=== PATIENT | female | born 1980 | race Caucasian/White ===

== ENCOUNTER 2016-11-30 16:20 | Emergency (ER) | payer OTHER ==
[~2016-11-30] VITALS: Ht 167.6 cm; Wt 52.2 kg
--- NOTE | 2016-11-30 17:34 | ED Integumentary General ---
General Chief Complaint: Skin/Wound Problems Stated Complaint: SPIDER BITES Nursing Triage Note: c/o abscess to right thigh and to vaginal area. Source: patient Exam Limitations: no limitations History of Present Illness Time seen by provider: 17:34 Initial Comments 36-year-old female patient presents to the emergency department complaints of possible spider bites and abscess to the right thigh and left labia. Patient also complaints of generalized rash and pruritus beginning 2 days ago. States her boyfriend is also being seen in the emergency department for different complaints. Timing/Duration: other (2 days) Location: extremities (left thigh), genitalia (left labia), generalized ( generalized rash) Possible Cause: other (possible spider bite) Modifying Factors: worse with scratching Allergies and Home Medications Allergies Coded Allergies: No Known Drug Allergies (Unverified , 11/30/16) Home Medications Famotidine 20 Mg Tablet, 20 MG PO BID, #14 Ref 0 Prescribed by: AUBREY BRADSHAW on 11/30/161839 Naproxen 500 Mg Tablet, 500 MG PO BID PRN for pain, #20 Ref 0 Prescribed by: AUBREY BRADSHAW on 11/30/161839 Prednisone 20 Mg Tab, 20 MG PO BID, #6 Ref 0 Prescribed by: AUBREY BRADSHAW on 11/30/161839 Sulfamethoxazole/Trimethoprim 1 Each Tablet, 1 EACH PO BID, #20 Ref 0 Prescribed by: AUBREY BRADSHAW on 11/30/161839 Constitutional: No chills, No fever, No malaise EENTM: no symptoms reported Respiratory: No cough, No short of breath Cardiovascular: no symptoms reported Gastrointestinal: No abdominal pain, No diarrhea, No nausea, No vomiting Genitourinary: no symptoms reported Musculoskeletal: no symptoms reported Skin: see HPI Psychiatric/Neurological: No Symptoms Reported All Other Systems Reviewed Negative Unless Noted: Yes (Negative excepted noted.) Past Tukzmii-Bwvpph-Voifin Hx Patient Social History Alcohol Use: Occasionally Uses Smoking Status: Current Everyday Smoker Recent Foreign Travel: No Contact w/Someone Who Travel: No Recent Infectious Disease Expo: No Surgeries HX Surgeries: Yes Surgeries: Gallbladder, Oophorectomy Respiratory Hx Respiratory Disorders: No Cardiovascular Hx Cardiac Disorders: No Neurological Hx Neurological Disorders: No Gastrointestinal Hx Gastrointestinal Disorders: No Musculoskeletal Hx Musculoskeletal Disorders: No Reviewed Nursing Assessment Reviewed/Agree w Nursing PMH: Yes Family Medical History Significant Family History: No Pertinent Family Hx Physical Exam Vital Signs Vital Sign - Last 12Hours 11/30/16 11/30/16 16:59 19:03 Temp 97.2 Pulse 70 Resp 0 B/P (MAP) 118/70 Pulse Ox 98 Capillary Refill : Less Than 3 Seconds General Appearance: WD/WN, no apparent distress HEENT: PERRL/EOMI, pharynx normal Neck: supple, normal inspection Cardiovascular: regular rate, rhythm, no edema, no murmur Respiratory: lungs clear, normal breath sounds, no respiratory distress Gastrointestinal: non tender, soft, No distended Neurologic/Psychiatric: alert, normal mood/affect, oriented x 3 Skin: rash (generalized macular papular rash), other (8 x 8 cm area of erythema , warmth, tenderness with central necrosis. Central induration. 0.5 cm x0.5 cm area of induration and tenderness noted on the left labia majora.) Skin Problem Character: other (8 x 8 cm area of erythema, warmth, tenderness with central necrosis. Central induration. generalized macular papular rash. 0.5 cm x0.5 cm area of induration and tenderness noted on the left labia majora. ) Progress/Results/Core Measures Results/Orders Micro Results Microbiology 11/30/16 Gram Stain - Final, Resulted 11/30/16 Wound Culture - Preliminary, Resulted Staphylococcus Aureus My Orders Orders - AUBREY BRADSHAW Famotidine Tablet (Pepcid Tablet) (11/30/16 18:03) Ketorolac Injection (Toradol Injection) (11/30/16 18:03) Diphenhydramine Tablet (Benadryl Tablet) (11/30/16 18:15) Prednisone Tablet (Deltasone Tablet) (11/30/16 18:15) Dipht,Pertuss(Acell),Tet Adult (Boostrix (11/30/16 18:10) Wound Culture (11/30/16 19:03) Im/Sub-Q Injection Non-Ab Ed (11/30/16 ) Vaccine Administration Single (11/30/16 ) Vital Signs/I&O Vital Sign - Last 12Hours 11/30/16 11/30/16 11/30/16 11/30/16 16:59 18:32 18:34 19:03 Temp 97.2 97.2 97.2 Pulse 70 0 Resp 0 B/P (MAP) 118/70 Pulse Ox 98 0 Blood Pressure Mean: 86 Departure Communication Progress Notes Patient seen and evaluated. Plan for dsch to home. Impression Impression: Primary Impression: Abscess of right thigh Additional Impressions: Cellulitis of labia majora Urticaria Disposition: HOME, SELF-CARE Condition: Improved Departure-Patient Inst. Decision time for Depature: 18:37 Referrals: NO,LOCAL PHYSICIAN (PCP) Primary Care Physician Patient Instructions: Cellulitis (Skin Infection), Adult (DC) Add. Discharge Instructions: All discharge instructions reviewed with patient and/or family. Voiced understanding. Medications as instructed. Tylenol Extra Strength over-the- counter as directed for pain. Shower with antibacterial soap. Follow-up with your family practitioner of choice in the next 1-2 days for recheck, call for appointment time tomorrow morning. Return to the emergency department for worsened pain, fever, vomiting, drainage, difficulty swallowing, difficulty breathing, or any other concerns. Scripts Naproxen (Naprosyn) 500 Mg Tablet 500 MG PO BID Y for pain, #20 TAB 0 Refills Prov: AUBREY BRADSHAW 11/30/16 Prednisone (Prednisone) 20 Mg Tab 20 MG PO BID, #6 TAB 0 Refills Prov: AUBREY BRADSHAW 11/30/16 Famotidine (Pepcid) 20 Mg Tablet 20 MG PO BID, #14 TAB 0 Refills Prov: AUBREY BRADSHAW 11/30/16 Sulfamethoxazole/Trimethoprim (Bactrim Ds Tablet) 1 Each Tablet 1 EACH PO BID, #20 TAB 0 Refills Prov: AUBREY BRADSHAW 11/30/16 Work/School Note: Local Medical Staff Listing AUBREY BRADSHAW November 30, 2016 17:34
[2016-11-30] MEDS ORDERED: KETOROLAC 60 MG/2 ML VIAL IM STA (18:03)
[2016-11-30] MEDS ORDERED: FAMOTIDINE 20 MG (PEPCID) TABLET PO STA (18:03)
[2016-11-30] MEDS ORDERED: TETANUS,DIPTH,PERTUSS P/F (BOOSTRIX) 0.5 ML VIAL IM STA (18:10)
[2016-11-30] MEDS ORDERED: predniSONE 20 MG TAB PO ONE (18:15)
[2016-11-30] MEDS ORDERED: diphenhydrAMINE 25 MG TAB (BENADRYL) PO ONE (18:15)
[2016-11-30] MEDS ORDERED: NAPR500T PO (18:40)
[2016-11-30] MEDS ORDERED: SULF1TAB35 PO (18:40)
[2016-11-30] MEDS ORDERED: FAMO-119 PO (18:40)
[2016-11-30] MEDS ORDERED: PRD20T PO (18:40)
[2016-11-30 19:03] VITALS: BP 0/0
[2016-12-01] MEDS ORDERED: PRD20T PO (20:06)
[2016-12-01] MEDS ORDERED: CLIN300C11 PO (20:06)
== END 2016-11-30 19:00 | disposition home or self-care (01) ==
LOC: EDUNIT# 16:20 → ER 16:24
DX: L02.415 Cutaneous abscess of right lower limb (principal); N76.2 Acute vulvitis; Z23 Encounter for immunization; F17.210 Nicotine dependence, cigarettes, uncomplicated
CPT/HCPCS: 87070; 87205; 90471; 90715; 96372; 99282

== ENCOUNTER 2016-12-01 16:30 | Emergency (ER) | payer OTHER ==
[~2016-12-01] VITALS: Ht 160 cm; Wt 49.9 kg
[~2016-12-01 16:30] MED LIST: FAMO-119 PO; NAPR500T PO; PRD20T PO; SULF1TAB35 PO
[2016-12-01] MEDS ORDERED: methylPREDNISolone 125 MG (Solu-MEDROL) VIAL IV STA (16:34)
[2016-12-01] MEDS ORDERED: FAMOTIDINE 20MG/2ML IV (PEPCID) IV STA (16:34)
[2016-12-01] MEDS ORDERED: diphenhydrAMINE 50 MG/ML INJ (BENADRYL) IV STA (16:34)
[2016-12-01] MEDS ORDERED: NS IV 1000 ML 1,000 ML IV ONE ×2 (16:39→18:28)
--- NOTE | 2016-12-01 17:14 | ED General ---
General Chief Complaint: Allergic Reaction Stated Complaint: ALLERGIC REACTION;SWOLLEN THROAT,ITCHING Nursing Triage Note: Pt c/o generalized itching. Concerned about possible allergic reaction to Bactrim. Seen in ER yesterday for abscess to right leg. Nursing Sepsis Screen: No Definite Risk Source of Information: Patient, Other (significant other ) Exam Limitations: No Limitations History of Present Illness Time Seen by Provider: 16:30 Allergies and Home Medications Allergies Coded Allergies: No Known Drug Allergies (Unverified , 11/30/16) Home Medications Famotidine 20 Mg Tablet, 20 MG PO BID, #14 Ref 0 Prescribed by: AUBREY BRADSHAW on 11/30/161839 Naproxen 500 Mg Tablet, 500 MG PO BID PRN for pain, #20 Ref 0 Prescribed by: AUBREY BRADSHAW on 11/30/161839 Prednisone 20 Mg Tab, 20 MG PO BID, #6 Ref 0 Prescribed by: AUBREY BRADSHAW on 11/30/161839 Sulfamethoxazole/Trimethoprim 1 Each Tablet, 1 EACH PO BID, #20 Ref 0 Prescribed by: AUBREY BRADSHAW on 11/30/161839 Past Cvjmcnc-Bskccb-Kruqsc Hx Patient Social History Recent Foreign Travel: No Contact w/Someone Who Travel: No Recent Infectious Disease Expo: No Surgeries HX Surgeries: Yes Surgeries: Gallbladder, Oophorectomy Respiratory Hx Respiratory Disorders: No Cardiovascular Hx Cardiac Disorders: No Neurological Hx Neurological Disorders: No Gastrointestinal Hx Gastrointestinal Disorders: No Musculoskeletal Hx Musculoskeletal Disorders: No Family Medical History Significant Family History: No Pertinent Family Hx Physical Exam Vital Signs Vital Sign - Last 12Hours 12/01/16 16:30 Temp 97.5 Pulse 70 Resp 18 B/P (MAP) 122/70 Pulse Ox 98 O2 Delivery Room Air Capillary Refill : Less Than 3 Seconds Focused Exam Lactic Acid Level Laboratory Tests Test 12/01/16 18:50 Lactic Acid Level 0.66 MMOL/L (0.50-2.00) Progress/Results/Core Measures Results/Orders Lab Results Laboratory Tests Test 12/01/16 17:30 12/01/16 18:45 12/01/16 18:50 Range/Units White Blood Count 15.9 H 4.3-11.0 10^3/uL Red Blood Count 3.79 L 4.35-5.85 10^6/uL Hemoglobin 12.2 11.5-16.0 G/DL Hematocrit 35 35-52 % Mean Corpuscular Volume 93 80-99 FL Mean Corpuscular Hemoglobin 32 25-34 PG Mean Corpuscular Hemoglobin Concent 35 32-36 G/DL Red Cell Distribution Width 13.4 10.0-14.5 % Platelet Count 172 130-400 10^3/uL Mean Platelet Volume 11.5 H 7.4-10.4 FL Neutrophils (%) (Auto) 87 H 42-75 % Lymphocytes (%) (Auto) 10 L 12-44 % Monocytes (%) (Auto) 2 0-12 % Eosinophils (%) (Auto) 0 0-10 % Basophils (%) (Auto) 0 0-10 % Neutrophils # (Auto) 13.9 H 1.8-7.8 X 10^3 Lymphocytes # (Auto) 1.6 1.0-4.0 X 10^3 Monocytes # (Auto) 0.4 0.0-1.0 X 10^3 Eosinophils # (Auto) 0.0 0.0-0.3 10^3/uL Basophils # (Auto) 0.0 0.0-0.1 10^3/uL Neutrophils % (Manual) 86 % Lymphocytes % (Manual) 13 % Monocytes % (Manual) 0 % Eosinophils % (Manual) 0 % Basophils % (Manual) 0 % Band Neutrophils 1 % Blood Morphology Comment NORMAL Sodium Level 138 135-145 MMOL/L Potassium Level 4.8 3.6-5.0 MMOL/L Chloride Level 111 H 98-107 MMOL/L Carbon Dioxide Level 16 L 21-32 MMOL/L Anion Gap 11 5-14 MMOL/L Blood Urea Nitrogen 20 H 7-18 MG/DL Creatinine 1.91 H 0.60-1.30 MG/DL Estimat Glomerular Filtration Rate 30 BUN/Creatinine Ratio 10 Glucose Level 108 H 70-105 MG/DL Calcium Level 9.2 8.5-10.1 MG/DL Total Bilirubin 0.2 0.1-1.0 MG/DL Aspartate Amino Transf (AST/SGOT) 15 5-34 U/L Alanine Aminotransferase (ALT/SGPT) 14 0-55 U/L Alkaline Phosphatase 49 40-136 U/L Total Creatine Kinase 79 29-168 U/L C-Reactive Protein High Sensitivity 0.75 H 0.00-0.50 MG/DL Total Protein 6.5 6.4-8.2 G/DL Albumin 4.0 3.2-4.5 G/DL Urine Color YELLOW Urine Clarity SLIGHTLY CLOUDY Urine pH 6 5-9 Urine Specific [place] 1.015 L 1.016-1.022 Urine Protein NEGATIVE NEGATIVE Urine Glucose (UA) NEGATIVE NEGATIVE Urine Ketones NEGATIVE NEGATIVE Urine Nitrite NEGATIVE NEGATIVE Urine Bilirubin NEGATIVE NEGATIVE Urine Urobilinogen NORMAL NORMAL MG/DL Urine Leukocyte Esterase NEGATIVE NEGATIVE Urine RBC (Auto) NEGATIVE NEGATIVE Urine RBC NONE /HPF Urine WBC 0-2 /HPF Urine Squamous Epithelial Cells 25-50 H /HPF Urine Crystals NONE /LPF Urine Bacteria FEW H /HPF Urine Casts NONE /LPF Urine Mucus NEGATIVE /LPF Urine Culture Indicated NO Urine Opiates Screen NEGATIVE NEGATIVE Urine Oxycodone Screen NEGATIVE NEGATIVE Urine Methadone Screen NEGATIVE NEGATIVE Urine Propoxyphene Screen NEGATIVE NEGATIVE Urine Barbiturates Screen NEGATIVE NEGATIVE Ur Tricyclic Antidepressants Screen NEGATIVE NEGATIVE Urine Phencyclidine Screen NEGATIVE NEGATIVE Urine Amphetamines Screen NEGATIVE NEGATIVE Urine Methamphetamines Screen NEGATIVE NEGATIVE Urine Benzodiazepines Screen POSITIVE H NEGATIVE Urine Cocaine Screen NEGATIVE NEGATIVE Urine Cannabinoids Screen NEGATIVE NEGATIVE Lactic Acid Level 0.66 0.50-2.00 MMOL/L My Orders Orders - AUBREY BRADSHAW Drug Screen Stat (Urine) (12/01/16 16:34) Saline Lock/Iv-Start (12/01/16 16:34) Famotidine Injection (Pepcid Injection) (12/01/16 16:34) Diphenhydramine Injection (Benadryl Inje (12/01/16 16:34) Methylprednisolone Sod Succ (Solu-Medrol (12/01/16 16:34) Ns Iv 1000 Ml (Sodium Chloride 0.9%) (12/01/16 16:39) Cbc With Automated Diff (12/01/16 16:39) Comprehensive Metabolic Panel (12/01/16 16:39) Hs C Reactive Protein (12/01/16 16:39) Ua Culture If Indicated (12/01/16 16:39) Manual Differential (12/01/16 17:30) Ns Iv 1000 Ml (Sodium Chloride 0.9%) (12/01/16 18:28) Creatine Kinase (12/01/16 18:28) Lactic Acid Analyzer (12/01/16 18:28) Blood Culture (12/01/16 18:28) Rx-Clindamycin Capsule (Rx-Cleocin Capsu (12/01/16 20:01) Medications Given in ED Current Medications Medications Dose Ordered Sig/Clarke Route Start Time Stop Time Status Last Admin Dose Admin Sodium Chloride 1,000 ml @ 0 mls/hr Q0M ONCE IV 12/01/16 16:39 12/01/16 16:41 DC 12/01/16 17:09 1,000 MLS/HR Sodium Chloride 1,000 ml @ 0 mls/hr Q0M ONCE IV 12/01/16 18:28 12/01/16 18:29 DC 12/01/16 18:55 0 MLS/HR Vital Signs/I&O Vital Sign - Last 12Hours 12/01/16 16:30 Temp 97.5 Pulse 70 Resp 18 B/P (MAP) 122/70 Pulse Ox 98 O2 Delivery Room Air Blood Pressure Mean: 87 Departure Impression Impression: Primary Impression: [id number] Qualified Codes: T78.3XXA - Angioneurotic edema, initial encounter Additional Impressions: Cellulitis of right thigh Spider bite, venomous Drug-induced acute renal failure Disposition: HOME, SELF-CARE Condition: Improved Departure-Patient Inst. Decision time for Depature: 20:03 Referrals: NO,LOCAL PHYSICIAN (PCP) Primary Care Physician Patient Instructions: Cellulitis (Skin Infection), Adult (DC), Spider Bites Add. Discharge Instructions: All discharge instructions reviewed with patient and/or family. Voiced understanding. Medications as instructed. Stop the Bactrim immediately. Continue the prednisone, Pepcid, Benadryl. Roxane, Claritin, or Zyrtec as instructed [id number] for rash and itching. Shower with antibacterial soap. Repeat labs tomorrow. Follow-up with Dr. Castillo tomorrow for recheck. If unable to be seen tomorrow by Dr. Castillo; follow-up at an urgent care, quick care, or return to the emergency department. Push fluids. Alternate water and Gatorade/Powerade. Elevate the right lower extremity as much as possible. Return to the emergency department immediately for worsened rash, swelling of the throat/face/tongue, difficulty swallowing, difficulty breathing, headache, dizziness, vomiting, redness, drainage, fever, or any other concerns. Scripts Prednisone (Prednisone) 20 Mg Tab 40 MG PO DAILY, #4 TAB 0 Refills Prov: AUBREY BRADSHAW 12/01/16 Clindamycin HCl (Clindamycin HCl) 300 Mg Capsule 300 MG PO QID, #40 CAP 0 Refills Prov: AUBREY BRADSHAW 12/01/16 Work/School Note: Local Medical Staff Listing, Work Release Form Date Seen in the Emergency Department: December 01, 2016 Return to Work: December 03, 2016 Restrictions: No Restrictions AUBREY BRADSHAW December 01, 2016 17:14
[2016-12-01 17:42] LABS: BASOPHILS % (AUTO) 0 % (0-10); EOSINOPHILS % (AUTO) 0 % (0-10); LYMPHOCYTES # (AUTO) 1.6 X 10^3 (1.0-4.0); LYMPHOCYTES % (AUTO) 10 % (12-44); MEAN CORPUSCULAR HEMOGLOBIN 32 PG (25-34); MEAN CORPUSCULAR HGB CONC 35 G/DL (32-36); MEAN CORPUSCULAR VOLUME 93 FL (80-99); MEAN PLATELET VOLUME 11.5 FL (7.4-10.4); MONOCYTES # (AUTO) 0.4 X 10^3 (0.0-1.0); MONOCYTES % (AUTO) 2 % (0-12); NEUTROPHILS # (AUTO) 13.9 X 10^3 (1.8-7.8); NEUTROPHILS % (AUTO) 87 % (42-75); PLATELET COUNT 172 10^3/uL (130-400); RED BLOOD COUNT 3.79 10^6/uL (4.35-5.85); RED CELL DISTRIBUTION WIDTH 13.4 % (10.0-14.5); WHITE BLOOD COUNT 15.9 10^3/uL (4.3-11.0)
[2016-12-01 18:00] LABS: BILIRUBIN,TOTAL 0.2 MG/DL (0.1-1.0); CALCIUM 9.2 MG/DL (8.5-10.1); CREATININE SERUM 1.91 MG/DL (0.60-1.30); POTASSIUM 4.8 MMOL/L (3.6-5.0); TOTAL PROTEIN 6.5 G/DL (6.4-8.2); hs C REACTIVE PROTEIN 0.75 MG/DL (0.00-0.50)
[2016-12-01 18:11] LABS: BAND NEUTROPHILS 1 %; BASOPHILS % (MANUAL) 0 %; EOSINOPHILS % (MANUAL) 0 %; LYMPHOCYTES % (MANUAL) 13 %; NEUTROPHILS % (MANUAL) 86 %
[2016-12-01 18:56] LABS: BILIRUBIN,URINE NEGATIVE (NEGATIVE); KETONES,URINE NEGATIVE (NEGATIVE); LEUKOCYTE ESTERASE ,URINE NEGATIVE (NEGATIVE); NITRITE,URINE NEGATIVE (NEGATIVE); PH,URINE 6 (5-9); PROTEIN,URINE NEGATIVE (NEGATIVE); UROBILINOGEN,URINE NORMAL (NORMAL)
[2016-12-01 19:02] LABS: WBC,URINE 0-2 /HPF
[2016-12-01 19:03] LABS: SQUAMOUS EPITHELIAL CELL,UR 25-50 /HPF
[2016-12-01] MEDS ORDERED: RX-CLINDAMYCIN 150 MG (CLEOCIN) CAP PPK#4 PO STA (20:01)
[2016-12-01] MEDS ORDERED: CLIN300C11 PO (20:06)
[2016-12-01] MEDS ORDERED: PRD20T PO (20:06)
[2016-12-01 20:25] VITALS: BP 116/74
== END 2016-12-01 20:25 | disposition home or self-care (01) ==
LOC: EDUNIT# 16:30 → ER 16:31
DX: T78.3XXA Angioneurotic edema, initial encounter (principal); T37.0X5A Adverse effect of sulfonamides, initial encounter; L03.115 Cellulitis of right lower limb; T63.391A Toxic effect of venom of other spider, accidental (unintentional), initial encounter; N17.9 Acute kidney failure, unspecified
CPT/HCPCS: 36415; 80053; 80306; 81000; 82550; 83605; 85007; 85027; 86141; 87040; 96361; 96374; 96375; 99283

== ENCOUNTER 2017-12-21 00:27 | Emergency (ER) | payer OTHER ==
[~2017-12-21] VITALS: Ht 157.5 cm; Wt 42.6 kg
[~2017-12-21 00:27] MED LIST changes: +CLIN300C11 PO; +NAPR-1071 PO; -NAPR500T PO
[2017-12-21] MEDS ORDERED: LACTATED RINGERS 1,000 ML IV ONE (00:35)
[2017-12-21 00:45] LABS: HEMOGLOBIN 13.3 G/DL (11.5-16.0); MEAN PLATELET VOLUME 10.3 FL (7.4-10.4); RED BLOOD COUNT 3.99 10^6/uL (4.35-5.85); RED CELL DISTRIBUTION WIDTH 13.7 % (10.0-14.5); WHITE BLOOD COUNT 12.5 10^3/uL (4.3-11.0)
[2017-12-21] MEDS ORDERED: ONDANSETRON 4 MG/2 ML (SDV) Z0FRAN IVP ONE (00:45)
[2017-12-21] MEDS ORDERED: fentaNYL INJECTION 100 MCG/2 ML AMP IVP ONE (00:45)
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
[2017-12-21 01:04] LABS: ALBUMIN 4.1 GM/DL (3.2-4.5); BILIRUBIN,DIRECT 0.2 MG/DL (0.0-0.3); BILIRUBIN,INDIRECT 0.2 MG/DL; BILIRUBIN,TOTAL 0.4 MG/DL (0.1-1.0); CALCIUM 9.3 MG/DL (8.5-10.1); CREATININE SERUM 1.18 MG/DL (0.60-1.30); POTASSIUM 3.8 MMOL/L (3.6-5.0); TOTAL PROTEIN 6.6 GM/DL (6.4-8.2)
[2017-12-21] MEDS ORDERED: KETOROLAC 30 MG/ML VIAL IVP ONE (02:15)
[2017-12-21 02:44] LABS: BILIRUBIN,URINE NEGATIVE (NEGATIVE); CLARITY,URINE CLEAR; COLOR,URINE YELLOW; GLUCOSE, URINE (UA) NEGATIVE (NEGATIVE); KETONES,URINE NEGATIVE (NEGATIVE); LEUKOCYTE ESTERASE ,URINE NEGATIVE (NEGATIVE); NITRITE,URINE NEGATIVE (NEGATIVE); PH,URINE 6 (5-9); PROTEIN,URINE NEGATIVE (NEGATIVE); UROBILINOGEN,URINE NORMAL (NORMAL)
[2017-12-21 03:22] LABS: BACTERIA,URINE TRACE /HPF; SQUAMOUS EPITHELIAL CELL,UR 25-50 /HPF
[2017-12-21] MEDS ORDERED: ACHD5005 PO (03:33)
[2017-12-21] MEDS ORDERED: ONDA4TAB11 PO (03:33)
[2017-12-21 04:09] VITALS: BP 115/85
[2017-12-21] MEDS ORDERED: ALPR0.5T7 (04:38)
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
== END 2017-12-21 04:09 | disposition home or self-care (01) ==
LOC: EDUNIT# 00:27 → ER 00:31
DX: S06.0X0A Concussion without loss of consciousness, initial encounter (principal); S22.31XA Fracture of one rib, right side, initial encounter for closed fracture; S80.212A Abrasion, left knee, initial encounter; S50.312A Abrasion of left elbow, initial encounter; S40.212A Abrasion of left shoulder, initial encounter; R40.2142 Coma scale, eyes open, spontaneous, at arrival to emergency department; R40.2252 Coma scale, best verbal response, oriented, at arrival to emergency department; R40.2362 Coma scale, best motor response, obeys commands, at arrival to emergency department; F17.210 Nicotine dependence, cigarettes, uncomplicated; F12.10 Cannabis abuse, uncomplicated; Z79.52 Long term (current) use of systemic steroids; V86.99XA Unspecified occupant of other special all-terrain or other off-road motor vehicle injured in nontraffic accident, initial encounter
CPT/HCPCS: 36415; 70450; 71045; 71260; 72125; 73030; 73080; 73562; 74177; 80048; 80076; 80320; 81000; 84703; 85027; 86850; 86900; 86901; 93041; 94664; 96361; 96374; 96375

== ENCOUNTER 2018-04-07 09:39 | Outpatient (CLI) | payer BC ==
[~2018-04-07] VITALS: Ht 157.5 cm; Wt 44.5 kg
[~2018-04-07 09:39] MED LIST changes: +ACHD5005 PO; +ALPR0.5T7 PO; +ONDA4TAB11 PO
[2018-04-07 09:51] VITALS: BP 120/84
[2018-04-07 10:24] LABS: BASOPHILS % (AUTO) 1 % (0-10); EOSINOPHILS # (AUTO) 0.2 10^3/uL (0.0-0.3); EOSINOPHILS % (AUTO) 2 % (0-10); HEMATOCRIT 41 % (35-52); HEMOGLOBIN 14.5 G/DL (11.5-16.0); LYMPHOCYTES # (AUTO) 3.1 X 10^3 (1.0-4.0); LYMPHOCYTES % (AUTO) 37 % (12-44); MEAN CORPUSCULAR HEMOGLOBIN 34 PG (25-34); MEAN CORPUSCULAR HGB CONC 35 G/DL (32-36); MEAN CORPUSCULAR VOLUME 96 FL (80-99); MEAN PLATELET VOLUME 10.5 FL (7.4-10.4); MONOCYTES # (AUTO) 0.9 X 10^3 (0.0-1.0); MONOCYTES % (AUTO) 11 % (0-12); NEUTROPHILS # (AUTO) 4.1 X 10^3 (1.8-7.8); NEUTROPHILS % (AUTO) 49 % (42-75); PLATELET COUNT 242 10^3/uL (130-400); RED BLOOD COUNT 4.32 10^6/uL (4.35-5.85); RED CELL DISTRIBUTION WIDTH 14.1 % (10.0-14.5); WHITE BLOOD COUNT 8.3 10^3/uL (4.3-11.0)
== END 2018-04-07 10:10 | disposition home or self-care (01) ==
LOC: PREOP 09:39
PROVIDERS: ATTEND Obstetrics & Gynecology
DX: Z01.812 Encounter for preprocedural laboratory examination (principal); Z11.2 Encounter for screening for other bacterial diseases; R10.2 Pelvic and perineal pain; N87.0 Mild cervical dysplasia; N39.3 Stress incontinence (female) (male); N81.2 Incomplete uterovaginal prolapse
CPT/HCPCS: 36415; 85025; 86850; 86900; 86901; 87081

== ENCOUNTER 2018-04-14 11:30 | Day surgery (SDC) | payer BC, OTHER ==
[~2018-04-14] VITALS: Ht 157.5 cm; Wt 44.5 kg
[2018-04-14 11:30] VITALS: BP 110/74
[2018-04-14] MEDS ORDERED: ceFAZolin INJECTION 1,000 MG in NS (IVPB) 50 ML IV ONE (11:45)
[2018-04-14] MEDS ORDERED: BUP/EPI 0.5% 1:200,000 (SENSORCAINE) 30 ML VIAL ONE (12:00)
[2018-04-14] MEDS: LACTATED RINGERS 1,000 ML IV PRN ×2 (12:00→14:23)
[2018-04-14] MEDS ORDERED: DEXAMETHASONE 10 MG/ML (DECADRON) 1 ML VIAL ONE (12:25)
[2018-04-14] MEDS ORDERED: ROCURONIUM 10 MG/ML 5 ML SYRINGE IV ONE (12:25)
[2018-04-14] MEDS ORDERED: proPOfol 200 MG/20 ML (DIPRIVAN) VIAL IV ONE (12:25)
[2018-04-14] MEDS ORDERED: LIDOCAINE PF 2% 2 ML (XYLOCAINE) VIAL ONE (12:25)
[2018-04-14] MEDS ORDERED: ONDANSETRON 4 MG/2 ML (SDV) Z0FRAN ONE (12:25)
[2018-04-14] MEDS ORDERED: fentaNYL INJECTION 100 MCG/2 ML AMP ONE (12:26)
[2018-04-14] MEDS ORDERED: SEVOFLURANE (ULTANE) 15 ML INHAL SOLN ONE ×5 (12:26→14:54)
[2018-04-14] MEDS ORDERED: MIDAZOLAM 2 MG/2 ML (VERSED) VIAL ONE (12:26)
[2018-04-14] MEDS ORDERED: KETOROLAC 30 MG/ML VIAL ONE (12:26)
--- NOTE | 2018-04-14 13:28 | Progress Note-Pre Operative ---
Pre-Operative Progress Note H&P Reviewed The H&P was reviewed, patient examined and no changes noted. Date Seen by Provider: Apr 14, 2018 Time Seen by Provider: 13:27 Date H&P Reviewed: Apr 14, 2018 Time H&P Reviewed: 13: Pre-Operative Diagnosis: Chronic pelvic pain uterine prolapse PRAKASH-1 BEKAH RICHARDSON MD Apr 14, 2018 1:27 pm
--- NOTE | 2018-04-14 13:28 | Progress Note-Post Operative ---
Post-Operative Progess Note Surgeon (s)/Regional Flatbed Truck Driver (s) Surgeon BEKAH RICHARDSON MD Regional Flatbed Truck Driver: Sandi Khanna Pre-Operative Diagnosis Chronic pelvic pain uterine prolapse PRAKASH-1 Post-Operative Diagnosis Same with pathology pending Procedure & Operative Findings Date of Procedure 04/14/18 Procedure Performed/Findings The laparoscopic hysterectomy with bilateral salpingectomy Anesthesia Type GETA Estimated Blood Loss Estimated blood loss (mL): Minimal Specimens/Packing Specimens Removed Uterus and fallopian tubes Packing: None required BEKAH RICHARDSON MD Apr 14, 2018 13:28
[2018-04-14] MEDS ORDERED: DOCU-143 PO (13:30)
[2018-04-14] MEDS ORDERED: IBUP-1780 PO (13:30)
[2018-04-14] MEDS ORDERED: OXYC-199 PO (13:30)
--- NOTE | 2018-04-14 13:31 | Discharge Instructions ---
Discharge Instructions Discharge Medications New, Converted or Re-Newed RX: RX on Chart Patient Instructions Patient Instructions: As directed Return to The Hospital For: DIRECTED Activity & Diet Discharge Diet: No Restrictions Activity as Tolerated: No Orders-Post D/C & Referrals Follow Up Appt: Return to clinic on Tuesday, April 17, 2018 at 930 a.m. for staple removal Call to make follow up appt. for patient in 4 weeks. Activity: Rest for 24 hours, than as tolerated. Wound Care: May remove Band-Aid tomorrow. Replace as desired. Keep incisions clean and dry. Wash daily with soap and water. Please call in RX to patient pharmacy. Diet: As tolerated-Clear Liquids only if nauseated. may shower or tub bathe as desired. No driving for 24 hours, no alcoholic beverages for 24 hours, and nothing per vagina (no tampons, douching, or intercourse) for 8 weeks. Patient to return to the clinic as soon as possible for: Temperature greater than 101F, Severe Pain, Foul discharge from incision or vagina, Excessive Bleeding (more than a period). BEKAH RICHARDSON MD Apr 14, 2018 1:31 pm
[2018-04-14] MEDS ORDERED: GLYCOPYRROLATE 0.2 MG/ML (ROBINUL) 2 ML VIAL ONE (14:49)
[2018-04-14] MEDS ORDERED: NEOSTIGMINE 1 MG/ML 5 ML SYRINGE ONE (14:49)
[2018-04-14] MEDS: KETOROLAC 30 MG/ML VIAL IVP SCH ×2 (14:55→21:22)
[2018-04-14] MEDS ORDERED: morphine INJ 10 MG/ML 1ML (SYR OR VIAL) IVP ONE (15:15)
[2018-04-14] MEDS ORDERED: ONDANSETRON 4 MG/2 ML (SDV) Z0FRAN IVP PRN ×2 (15:15→16:00)
[2018-04-14] MEDS ORDERED: MEPERIDINE (DEMEROL) INJ 50 MG/ML IVP ONE (15:15)
--- NOTE | 2018-04-14 15:20 | Anesthesia-General Post-Op ---
General Patient Condition Mental Status/LOC: Same as Preop Cardiovascular: Satisfactory Nausea/Vomiting: Absent Respiratory: Satisfactory Pain: Controlled Complications: Absent Post Op Complications Complications None Follow Up Care/Instructions Patient Instructions None needed. Anesthesia/Patient Condition Patient Condition Patient is doing well, no complaints, stable vital signs, no apparent adverse anesthesia problems. No complications reported per nursing. ROSA CORTEZ CRNA Apr 14, 2018 15:20
[2018-04-14] MEDS ORDERED: MEPERIDINE (DEMEROL) INJ 50 MG/ML ONE (15:21)
[2018-04-14] MEDS ORDERED: MEPERIDINE (DEMEROL) INJ 100 MG/ML IM PRN (16:00)
[2018-04-14] MEDS ORDERED: PROMETHAZINE INJ 25 MG/ML (PHENERGAN) AMP IM PRN (16:00)
[2018-04-14 16:10] VITALS: BP 111/73
[2018-04-14] MEDS: D5 LR IV SOLUTION 1,000 ML IV SCH ×2 (17:20→21:58)
[2018-04-14] MEDS: oxyCODONE/APAP 5/325MG (PERCOCET 5) TABLET PO PRN (19:59)
[2018-04-14 20:06] VITALS: BP 106/74
--- NOTE | 2018-04-14 20:42 | OPERATIVE REPORT ---
DATE OF SERVICE: 04/14/2018 PREOPERATIVE DIAGNOSES: 1. Chronic pelvic pain, uterine prolapse. 2. Dysfunctional bleeding. POSTOPERATIVE DIAGNOSES: 1. Chronic pelvic pain, uterine prolapse. 2. Dysfunctional bleeding. OPERATIVE PROCEDURE: Total laparoscopic hysterectomy with bilateral salpingectomy. OPERATIVE DESCRIPTION: With the patient in supine position under satisfactory general anesthesia, she was repositioned in dorsal lithotomy position in the [facility] and prepped and draped in usual fashion for abdominal and vaginal surgery. Urinary bladder was drained via Norton catheter. A weighted speculum placed in posterior fornix. The cervix was grasped anteriorly with a single-tooth tenaculum. Uterus was sounded to 9 cm with uterine sound. Cervix was then serially dilated with Ketan dilators to accommodate a Anushka II manipulator, which was placed using a 6 mm x 8 cm uterine probe and a 25 mm colpotomy ring. Sutures of #1 Vicryl placed at 3 o'clock and 9 o'clock position of the cervix to affix the uterus and cervix to the manipulator. The patient was brought in low dorsal lithotomy position. A 12 mm incision was made 3 cm superior to the umbilicus. Veress needle was placed through that incision directly into the abdominal cavity. Correct placement was confirmed with a water drop test. The abdomen was inflated with 2.4 liters of carbon dioxide. The Veress needle was removed and a 12 mm Optiview laparoscopic port was placed. Incisions of 8 mm were made and 8 cm lateral to the umbilicus after infiltrating those 2 sites as well as the initial site with 1% lidocaine with epinephrine prior to the incisions. The 8 mm ports were placed under direct vision. The patient was placed in Trendelenburg allowing the bowel to spill out of the pelvis. The operative ports were docked to the da Ector column and I retired to the da Ector console for the procedure. The operative instruments were placed using the vessel sealer on the right and a bipolar fenestrated grasper on the left, the pelvis was first examined. There were some adhesions of the sigmoid to the left pelvic brim. These were taken down to allow complete access to the IP ligament. These were light filmy and required only cutting. There was no bleeding noted there. Both ureters were seemed to peristalse and they traversed well down into the pelvis. Both ovaries were normal in appearance. There were follicular cysts on both. There was evidence of tubal sterilization bilaterally. The laparoscope was rotated. The appendix was seen. It was a normal vermiform appendix. Laparoscope was brought back to the pelvis. Right fallopian tube was grasped and elevated. The mesosalpinx was clamped, cauterized and divided with the vessel sealer that was continued across the mesosalpinx to the utero-ovarian pedicle, which was clamped, cauterized and divided and this was continued across the broad ligaments and the cardinal ligament. Same procedure performed on the left, allowing for removal of both fallopian tubes eventually with the uterus and conserving both ovaries. The anterior lower uterine segment peritoneum was divided by monopolar lesley in place of the vessel sealer. The colpotomy incision was then started at 12 o'clock position onto the colpotomy ring. That incision was continued circumferentially until the entire colpotomy ring was exposed. The uterus with the tubes attached was extracted through the vagina. Vaginal cuff was closed with two sutures of V-Loc barbed suture starting first on the right angle and continuing well past the midportion of the cuff closing in a running and running locked fashion, taking care to include the pedicles of the uterine vessels on the right. Same procedure was performed on left with a second suture coming from the left and after the vaginal cuff was completely closed, the vaginal cuff was reperitonealized with additional steps using that same second suture. With hemostasis complete, no remaining abnormal pathology, sponge and needle count correct and the procedure was terminated. The operative instruments removed under direct vision as were the ports. The abdomen was evacuated in the process of removing the ports. The da Ector column had been undocked. The patient was brought out of Trendelenburg. The skin incisions were closed with marlen after first closing the fascia at the supraumbilical incision with a [id number] suture of 2-0 Vicryl. Speculum replaced in the vagina. The vaginal cuff examined and found completely intact and completely hemostatic. Sponge and needle counts were correct. Estimated blood loss was minimal. The patient tolerated the procedure well and was uneventfully awakened from general anesthesia and transferred to the recovery room in stable condition. Job ID: [id number] DocumentID: [id number] Dictated Date: 04/14/2018 14:53:40 Polystyrene Molding Machine Tender Date: 04/14/2018 20:42:08 Dictated By: MD STEVE SHAHID
[2018-04-14] MEDS ORDERED: NICOTINE 21 MG (NICODERM) PATCH ONE (22:11)
[2018-04-14] MEDS ORDERED: NICOTINE 21 MG (NICODERM) PATCH TD ONE (22:15)
[2018-04-14 23:27] VITALS: BP 121/79
[2018-04-15] MEDS: oxyCODONE/APAP 5/325MG (PERCOCET 5) TABLET PO PRN ×2 (00:37→09:32)
[2018-04-15] MEDS: D5 LR IV SOLUTION 1,000 ML IV SCH (02:05)
[2018-04-15] MEDS: KETOROLAC 30 MG/ML VIAL IVP SCH (03:03)
[2018-04-15 03:27] VITALS: BP 105/70
--- NOTE | 2018-04-15 08:02 | Progress Note-Standard ---
Standard Progress Note Progress Notes/Assess & Plan Date Seen by a Provider: Apr 15, 2018 Time Seen by a Provider: 08:01 Progress/Assessment & Plan This patient is without complaint. She is ambulating, voiding, tolerating oral intake well has good pain control and is requesting discharge home. Vital Signs 04/15/18 03:27 Temp 97.7 Pulse 90 Resp 16 B/P (MAP) 105/70 (82) Pulse Ox 99 O2 Delivery Room Air Vital signs are stable. Patient is afebrile. The abdomen is benign. Extreme show no clubbing cyanosis. There is no Homans sign. Assessment and plan postoperative day number 1 doing well. Plan is for discharge home with follow-up in clinic Final Diagnosis PRAKASH-1/pelvic pain/uterine prolapse/DUB BEKAH RICHARDSON MD Apr 15, 2018 8:02 am
[2018-04-15 08:07] VITALS: BP 121/78
[2018-04-15] MEDS ORDERED: IBUPROFEN 800 MG (MOTRIN) TAB PO ONE (08:10)
[2018-04-15] MEDS ORDERED: SIMETHICONE 80 MG (MYLICON) CHEW PO ONE (08:30)
[2018-04-15] MEDS ORDERED: DOCUSATE SODIUM 100 MG (COLACE) CAP PO SCH (09:00)
[2018-04-15] MEDS ORDERED: IBUPROFEN 800 MG (MOTRIN) TAB PO SCH (12:00)
== END 2018-04-15 13:45 | disposition home or self-care (01) ==
LOC: SDC 11:30 → WS 15:54 → SDC 04-15 13:45
PROVIDERS: ATTEND Obstetrics & Gynecology
DX: N87.1 Moderate cervical dysplasia (principal); N72 Inflammatory disease of cervix uteri; N83.8 Other noninflammatory disorders of ovary, fallopian tube and broad ligament; F17.210 Nicotine dependence, cigarettes, uncomplicated; F32.9 Major depressive disorder, single episode, unspecified; F41.9 Anxiety disorder, unspecified; Z79.899 Other long term (current) drug therapy
CPT/HCPCS: 84703; 86850; 86900; 86901; 94664

== ENCOUNTER 2018-12-19 19:45 | Emergency (ER) | payer BC ==
[~2018-12-19] VITALS: Ht 160 cm; Wt 43.1 kg
[~2018-12-19 19:45] MED LIST changes: +DOCU-143 PO; +IBUP-1780 PO; +OXYC-199 PO
--- NOTE | 2018-12-19 19:59 | ED Integumentary General ---
General Chief Complaint: Allergic Reaction Stated Complaint: LT EYE, LT SIDE FACE SWELLING SWELLING Nursing Triage Note: PT. REPORTED THAT SHE HAD BEEN ON A WALK AND NOTICED THAT SHE HAD A SMALL SWOLLEN AREA ON HER FOREHEAD THAT NOW HAS SPREAD TO THE LEFT EYE AND CHEEK. PT'S EYE IS SWOLLEN AND SHE CANT OPEN IT. Source: patient, family, RN notes reviewed Exam Limitations: no limitations History of Present Illness Date Seen by Provider: Dec 19, 2018 Time Seen by Provider: 19:53 Initial Comments Patient presents c/ c/o worsening swelling of her left forehead and now around her left eye. Not sure of cause. Was out taking a walk when noted a small swollen area on her left forehead that has fairly rapidly worsened c/ now left periorbital swelling. Timing/Duration: this evening Severity: moderate Location: face Possible Cause: no cause identified Associated Symptoms: denies symptoms (x/ as noted.), other (left periorbital swelling) Allergies and Home Medications Allergies Coded Allergies: No Known Drug Allergies (Unverified , 12/19/18) Home Medications Alprazolam 0.5 Mg Tablet, 0.5 MG PO Q6H PRN for ANXIETY, (Reported) Docusate Sodium 100 Mg Capsule, 100 MG PO BID Prescribed by: BEKAH CHO on 04/14/18 1330 Ibuprofen 800 Mg Tablet, 800 MG PO Q6H PRN for PAIN Prescribed by: BEKAH CHO on 04/14/18 1330 Oxycodone HCl/Acetaminophen 1 Each Tablet, 1 EACH PO Q4H PRN for PAIN-MODERATE Prescribed by: BEKAH CHO on 04/14/18 1330 Prednisone 20 Mg Tab, 20 MG PO BID Prescribed by: JERMAN MCGUIRE on 12/19/18 2106 Patient Home Medication List Home Medication List Reviewed: Yes Review of Systems Review of Systems Constitutional: see HPI EENTM: see HPI, other (left forehead and periorbital redness and swelling.) : No All Other Systems Reviewed Negative Unless Noted: Yes (Negative excepted noted.) Past Fiizeqy-Ljjsqj-Ozpgus Hx Patient Social History Alcohol Beverage of Choice: Beer Drug of Choice: MJ Type Used: Cigarettes Recent Foreign Travel: No Contact w/Someone Who Travel: No Recent Infectious Disease Expo: No Recent Hopitalizations: No Physical Abuse: No Sexual Abuse: No Mistreated: No Fear: No Seasonal Allergies Seasonal Allergies: No Past Medical History Surgeries: Yes Gallbladder, Oophorectomy Respiratory: No Cardiac: No Neurological: No Reproductive Disorders: No Genitourinary: No Gastrointestinal: No Musculoskeletal: No Endocrine: No HEENT: No Cancer: No Psychosocial: Yes Anxiety, Depression Integumentary: No Blood Disorders: No Family Medical History Patient reports no known family medical history. No Pertinent Family Hx Physical Exam Vital Signs Vital Signs - First Documented 12/19/18 19:50 Temp 97.6 Pulse 69 Resp 22 B/P (MAP) 130/90 (103) O2 Delivery Room Air Capillary Refill : Less Than 3 Seconds General Appearance: WD/WN, no apparent distress HEENT: PERRL/EOMI, other (left forehead and left periorbital swelling and redness c/w acute allergic rxn. Suspect from some type of insect bite/sting. ) Cardiovascular: regular rate, rhythm Respiratory: no respiratory distress Neurologic/Psychiatric: no motor/sensory deficits, alert, depressed affect Skin: warm/dry Skin Problem Location: face (left face/periorbital) Skin Problem Character: erythema, swelling Progress/Results/Core Measures Results/Orders My Orders Orders - JERMAN MCGUIRE DO Dexamethasone Injection (Decadron Inject (12/19/18 20:00) Prednisone Tablet (Deltasone Tablet) (12/19/18 20:00) Diphenhydramine Tablet (Benadryl Tablet) (12/19/18 20:00) Famotidine Tablet (Pepcid Tablet) (12/19/18 20:00) Medications Given in ED Current Medications Medications Dose Ordered Sig/Clarke Route Start Time Stop Time Status Last Admin Dose Admin Dexamethasone Sodium Phosphate 10 mg ONCE ONCE IM 12/19/18 20:00 12/19/18 20:01 DC 12/19/18 20:08 10 MG Diphenhydramine HCl 50 mg ONCE ONCE PO 12/19/18 20:00 12/19/18 20:01 DC 12/19/18 20:08 50 MG Famotidine 40 mg ONCE ONCE PO 12/19/18 20:00 12/19/18 20:01 DC 12/19/18 20:08 40 MG Prednisone 50 mg ONCE ONCE PO 12/19/18 20:00 12/19/18 20:01 DC 12/19/18 20:08 50 MG Vital Signs/I&O 12/19/18 19:50 Temp 97.6 Pulse 69 Resp 22 B/P (MAP) 130/90 (103) O2 Delivery Room Air Blood Pressure Mean: 103 Progress Progress Note : Progress Note Improved p/ meds. Departure Impression Primary Impression: Allergic reaction Disposition: HOME, SELF-CARE Condition: Improved Departure-Patient Inst. Referrals: [facility] [place] Patient Instructions: Hives (DC) Add. Discharge Instructions: All discharge instructions reviewed with patient and/or family. Voiced und erstanding. MAY REPEAT BENADRYL 50 mg (2 CAPSULES) EVERY 6 HOURS NEEDED. BEGIN PRESCRIPTION MEDICATION IN AM, 12/20. Scripts Prednisone (Prednisone) 20 Mg Tab 20 MG PO BID for 5 Days, #10 TAB 0 Refills Prov: JERMAN MCGUIRE DO 12/19/18 JERMAN MCGUIRE DO Dec 19, 2018 19:59
[2018-12-19] MEDS ORDERED: DEXAMETHASONE 10 MG/ML (DECADRON) 1 ML VIAL IM ONE (20:00)
[2018-12-19] MEDS ORDERED: FAMOTIDINE 20 MG (PEPCID) TABLET PO ONE (20:00)
[2018-12-19] MEDS ORDERED: predniSONE 20 MG TAB PO ONE (20:00)
[2018-12-19] MEDS ORDERED: diphenhydrAMINE 25 MG TAB (BENADRYL) PO ONE (20:00)
[2018-12-19 21:03] VITALS: BP 128/88
[2018-12-19] MEDS ORDERED: PRD20T PO (21:06)
== END 2018-12-19 21:09 | disposition home or self-care (01) ==
LOC: EDUNIT# 19:45 → ER FS 19:46
DX: T78.40XA Allergy, unspecified, initial encounter (principal); F41.9 Anxiety disorder, unspecified; F32.9 Major depressive disorder, single episode, unspecified; Z79.52 Long term (current) use of systemic steroids; Z98.890 Other specified postprocedural states
CPT/HCPCS: 96372; 99284

== ENCOUNTER 2019-08-04 18:04 | Emergency (ER) | payer BC ==
[~2019-08-04] VITALS: Ht 160 cm; Wt 52.3 kg
[2019-08-04 18:54] LABS: BASOPHILS % (AUTO) 1 % (0-10); EOSINOPHILS % (AUTO) 4 % (0-10); HEMATOCRIT 40 % (35-52); HEMOGLOBIN 13.7 G/DL (11.5-16.0); MEAN CORPUSCULAR HEMOGLOBIN 32 PG (25-34); MEAN CORPUSCULAR HGB CONC 35 G/DL (32-36); MEAN CORPUSCULAR VOLUME 93 FL (80-99); MEAN PLATELET VOLUME 10.6 FL (7.4-10.4); MONOCYTES % (AUTO) 10 % (0-12); NEUTROPHILS % (AUTO) 31 % (42-75); PLATELET COUNT 202 10^3/uL (130-400); RED CELL DISTRIBUTION WIDTH 12.8 % (10.0-14.5); WHITE BLOOD COUNT 7.9 10^3/uL (4.3-11.0)
[2019-08-04 18:55] LABS: BASOPHILS # (AUTO) 0.1 10^3/uL (0.0-0.1); EOSINOPHILS # (AUTO) 0.3 10^3/uL (0.0-0.3); LYMPHOCYTES # (AUTO) 4.3 X 10^3 (1.0-4.0); LYMPHOCYTES % (AUTO) 54 % (12-44); MONOCYTES # (AUTO) 0.8 X 10^3 (0.0-1.0); NEUTROPHILS # (AUTO) 2.4 X 10^3 (1.8-7.8)
[2019-08-04 19:01] LABS: INR 0.9 (0.8-1.4); PROTHROMBIN TIME PATIENT 12.3 SEC (12.2-14.7)
--- NOTE | 2019-08-04 19:04 | Diagnostic Imaging Report ---
EXAM: CHEST 1 VIEW AP/PA ONLY INDICATION: Back and chest pain. COMPARISON: 12/21/2017. FINDINGS: Normal heart size and pulmonary vascularity. No dense consolidation, pleural effusion or pneumothorax. No acute osseous findings. IMPRESSION: Negative chest. Dictated by: Dictated on workstation # [id number]
--- NOTE | 2019-08-04 19:06 | ED Chest Pain ---
General Chief Complaint: Chest Pain Stated Complaint: CHEST PAIN Nursing Triage Note: Patient presents to the ED with c/o chest pain. She states that the pain began yesterday around 2:30pm and has been intermittent. She reports that the severity increased about 30 minutes to 1 hour prior to arrival. She describes the pain as being left side of the chest radiating into her neck, to her back, and numbness to her left arm. Nursing Sepsis Screen: No Definite Risk Source: patient, family History of Present Illness Date Seen by Provider: Aug 04, 2019 Time Seen by Provider: 18:24 Initial Comments 39-year-old female was brought into the emergency room by male friend who reported that the patient was watching TV and developed shortness of breath just prior to coming into the emergency room. Patient denies any excessive physical activity or any other activities associated with the acute shortness of breath and chest pain. Initially the pain started around 2:30 today before but then 30 minutes to an hour prior to arrival the pain precipitated it became much worse. Patient is on the left side of the chest radiating to her neck and back with numbness into her left arm. Patient appeared to be hyperventilating when she came into the emergency room and was seen immediately upon arrival into the examination room. Patient has given informed consent for diagnostic and therapeutic services. She denies any possibility of denies any use of illicit substances. She also denies any prior history of chest pain shortness of breath respiratory problems kidney or GI disease. This dictation utilizes [employer] software and efforts were made to review and correct any errors. Some errors or unable to penetrate to review processes is not an intentional event. If there is any questions with this review please contact Sung Darling DO Timing/Duration: 1 hour Severity/Quality: moderate, stabbing (but improved significantly upon arrival to the emergency room), tearing Location: substernal, epigastric, shoulder (left side), back Radiation: arms (left side) Activities at Onset: none (watching TV) Prior CP/Workup: no prior chest pain (prior to yesterday) Modifying Factors: improves with lying down ASA po HAND PICKER: No NTG SL HAND PICKER: No Associated Symptoms: denies symptoms Allergies and Home Medications Allergies Coded Allergies: No Known Drug Allergies (Unverified , 12/19/18) Home Medications Alprazolam 0.5 Mg Tablet, 0.5 MG PO Q6H PRN for ANXIETY, (Reported) Docusate Sodium 100 Mg Capsule, 100 MG PO BID Prescribed by: BEKAH CHO on 04/14/18 1330 Ibuprofen 800 Mg Tablet, 800 MG PO Q6H PRN for PAIN Prescribed by: BEKAH CHO on 04/14/18 1330 Oxycodone HCl/Acetaminophen 1 Each Tablet, 1 EACH PO Q4H PRN for PAIN-MODERATE Prescribed by: BEKAH CHO on 04/14/18 1330 Prednisone 20 Mg Tab, 20 MG PO BID Prescribed by: JERMAN MCGUIRE on 12/19/182105 Patient Home Medication List Home Medication List Reviewed: Yes Review of Systems Review of Systems Constitutional: see HPI, weakness, other (left-sided chest pain) EENTM: No Symptoms Reported Respiratory: No Symptoms Reported Cardiovascular: No Symptoms Reported (or 2 yesterday), Chest Pain Gastrointestinal: No Symptoms Reported, Abdominal Pain Musculoskeletal: back pain, muscle pain, muscle cramps Skin: no symptoms reported (multiple tattoos) Psychiatric/Neurological: Anxiety Endocrine: No Symptoms Reported Hematologic/Lymphatic: No Symptoms Reported Past Rulfivu-Kbsgws-Tzeshe Hx Patient Social History Alcohol Use: Occasionally Uses Number of Drinks Today: 2 Alcohol Beverage of Choice: Beer Recreational Drug Use: No Drug of Choice: MJ Smoking Status: Current Everyday Smoker Type Used: Cigarettes 2nd Hand Smoke Exposure: No Recent Foreign Travel: No Contact w/Someone Who Travel: No Recent Infectious Disease Expo: No Recent Hopitalizations: No Physical Abuse: No Sexual Abuse: No Mistreated: No Fear: No Seasonal Allergies Seasonal Allergies: No Past Medical History Surgeries: Yes Gallbladder, Hysterectomy, Oophorectomy Respiratory: No Cardiac: No Neurological: No Reproductive Disorders: No Genitourinary: No Gastrointestinal: No Musculoskeletal: No Endocrine: No HEENT: No Cancer: No Psychosocial: Yes Anxiety, Depression Integumentary: No Blood Disorders: No Adverse Reaction/Blood Tranf: No Family Medical History Patient reports no known family medical history. No Pertinent Family Hx Physical Exam Vital Signs Vital Signs - First Documented 08/04/19 18:13 Temp 36.6 Pulse 93 Resp 24 B/P (MAP) 122/87 (99) Capillary Refill : Less Than 3 Seconds Height, Weight, BMI Height: 5'3.00" Weight: 95lbs. 0.0oz. [id number]; 20.00 BMI Method:Stated General Appearance: Anxious, Moderate Distress, Other (with progressive left- sided chest pain over the past 2 days) HEENT: PERRL/EOMI, Normal ENT Inspection, Pharynx Normal Neck: Full Range of Motion, Normal Inspection Respiratory: Lungs Clear (with the effects of tobacco some airway mucus identified) Cardiovascular: Regular Rate, Rhythm, No Edema, No Gallop, No JVD, No Murmur, Normal Peripheral Pulses, Other (EKG shows a sinus rhythm with a rate of 79 AK interval 129 QRS D 88 QT 371 and QTC 426) Gastrointestinal: Normal Bowel Sounds, No Organomegaly, No Pulsatile Mass, Non Tender Extremity: Normal Capillary Refill, Normal Range of Motion, Non Tender, No Calf Tenderness Neurologic/Psychiatric: Alert, Oriented x3, No Motor/Sensory Deficits, Normal Mood/Affect (high levels of anxiety), stretcher helper II-XII Norm as Tested Skin: Normal Color, Warm/Dry (with multiple tattoos) Lymphatic: No Adenopathy Progress/Results/Core Measures Results/Orders Lab Results Laboratory Tests Test 08/04/19 18:25 08/04/19 18:43 08/04/19 20:25 Range/Units White Blood Count 7.9 4.3-11.0 10^3/uL Red Blood Count 4.23 L 4.35-5.85 10^6/uL Hemoglobin 13.7 11.5-16.0 G/DL Hematocrit 40 35-52 % Mean Corpuscular Volume 93 80-99 FL Mean Corpuscular Hemoglobin 32 25-34 PG Mean Corpuscular Hemoglobin Concent 35 32-36 G/DL Red Cell Distribution Width 12.8 10.0-14.5 % Platelet Count 202 130-400 10^3/uL Mean Platelet Volume 10.6 H 7.4-10.4 FL Neutrophils (%) (Auto) 31 L 42-75 % Lymphocytes (%) (Auto) 54 H 12-44 % Monocytes (%) (Auto) 10 0-12 % Eosinophils (%) (Auto) 4 0-10 % Basophils (%) (Auto) 1 0-10 % Neutrophils # (Auto) 2.4 1.8-7.8 X 10^3 Lymphocytes # (Auto) 4.3 H 1.0-4.0 X 10^3 Monocytes # (Auto) 0.8 0.0-1.0 X 10^3 Eosinophils # (Auto) 0.3 0.0-0.3 10^3/uL Basophils # (Auto) 0.1 0.0-0.1 10^3/uL Prothrombin Time 12.3 12.2-14.7 SEC INR Comment 0.9 0.8-1.4 Activated Partial Thromboplast Time 26 24-35 SEC Sodium Level 140 135-145 MMOL/L Potassium Level 3.9 3.6-5.0 MMOL/L Chloride Level 104 98-107 MMOL/L Carbon Dioxide Level 20 L 21-32 MMOL/L Anion Gap 16 H 5-14 MMOL/L Blood Urea Nitrogen 15 7-18 MG/DL Creatinine 1.13 0.60-1.30 MG/DL Estimat Glomerular Filtration Rate 53 BUN/Creatinine Ratio 13 Glucose Level 82 70-105 MG/DL Calcium Level 9.5 8.5-10.1 MG/DL Corrected Calcium 9.3 8.5-10.1 MG/DL Magnesium Level 1.9 1.6-2.4 MG/DL Total Bilirubin 0.2 0.1-1.0 MG/DL Aspartate Amino Transf (AST/SGOT) 20 5-34 U/L Alanine Aminotransferase (ALT/SGPT) 17 0-55 U/L Alkaline Phosphatase 54 40-136 U/L Troponin I < 0.30 < 0.30 <0.30 NG/ML Total Protein 6.9 6.4-8.2 GM/DL Albumin 4.3 3.2-4.5 GM/DL Urine Color YELLOW Urine Clarity CLEAR Urine pH 6.0 5-9 Urine Specific [place] <=1.005 1.016-1.022 Urine Protein NEGATIVE NEGATIVE Urine Glucose (UA) NEGATIVE NEGATIVE Urine Ketones NEGATIVE NEGATIVE Urine Nitrite NEGATIVE NEGATIVE Urine Bilirubin NEGATIVE NEGATIVE Urine Urobilinogen 0.2 < = 1.0 MG/DL Urine Leukocyte Esterase NEGATIVE NEGATIVE Urine RBC (Auto) NEGATIVE NEGATIVE Urine RBC NONE /HPF Urine WBC NONE /HPF Urine Squamous Epithelial Cells 2-5 /HPF Urine Crystals NONE /LPF Urine Bacteria NEGATIVE /HPF Urine Casts NONE /LPF Urine Mucus NEGATIVE /LPF Urine Culture Indicated NO Urine Test NEGATIVE NEGATIVE Urine Opiates Screen NEGATIVE NEGATIVE Urine Oxycodone Screen NEGATIVE NEGATIVE Urine Methadone Screen NEGATIVE NEGATIVE Urine Propoxyphene Screen NEGATIVE NEGATIVE Urine Barbiturates Screen NEGATIVE NEGATIVE Ur Tricyclic Antidepressants Screen NEGATIVE NEGATIVE Urine Phencyclidine Screen NEGATIVE NEGATIVE Urine Amphetamines Screen NEGATIVE NEGATIVE Urine Methamphetamines Screen NEGATIVE NEGATIVE Urine Benzodiazepines Screen NEGATIVE NEGATIVE Urine Cocaine Screen NEGATIVE NEGATIVE Urine Cannabinoids Screen POSITIVE H NEGATIVE My Orders Orders - SUNG CALLEJAS DO Cbc With Automated Diff (08/04/19 18:46) Magnesium (08/04/19 18:46) Chest 1 View Ap/Pa Only (08/04/19 18:46) Ekg Tracing (08/04/19 18:46) Comprehensive Metabolic Panel (08/04/19 18:46) Protime With Inr (08/04/19 18:46) Partial Thromboplastin Time (08/04/19 18:46) O2 (08/04/19 18:46) Monitor-Rhythm Ecg Trace Only (08/04/19 18:46) Ed Iv/Invasive Line Start (08/04/19 18:46) Troponin I Fs (08/04/19 18:46) Drug Screen Stat (Urine) (08/04/19 18:48) Hcg,Qualitative Urine (08/04/19 18:48) Ua Culture If Indicated (08/04/19 18:49) Ns Iv 1000 Ml (Sodium Chloride 0.9%) (08/04/19 19:30) Troponin I Fs (08/04/19 20:25) Ns Iv 1000 Ml (Sodium Chloride 0.9%) (08/04/19 19:25) Ketorolac Injection (Toradol Injection) (08/04/19 20:00) Medications Given in ED Current Medications Medications Dose Ordered Sig/Clarke Route Start Time Stop Time Status Last Admin Dose Admin Ketorolac Tromethamine 30 mg ONCE ONCE IVP 08/04/19 20:00 08/04/19 20:01 DC 08/04/19 19:55 30 MG Vital Signs/I&O 08/04/19 18:13 Temp 36.6 Pulse 93 Resp 24 B/P (MAP) 122/87 (99) Blood Pressure Mean: 99 Initial ECG Impression Date: Aug 04, 2019 Initial ECG Impression Time: 18:27 Initial ECG Rate: 79 Initial ECG Rhythm: Normal Sinus Initial ECG Intervals: Normal Initial ECG Impression: Normal (with some low voltage and troponin was normal. Will hydrate patient give toradol 30mg IV and repeat troponin at 120 minutes) Departure Impression Primary Impression: Chest wall pain Additional Impressions: Chest pain on exertion Chest pain Disposition: HOME, SELF-CARE Condition: Stable Departure-Patient Inst. Decision time for Depature: 21:02 Referrals: NO,LOCAL PHYSICIAN (PCP) Primary Care Physician Patient Instructions: Chest Pain That Is Not Caused by the Heart (DC) Add. Discharge Instructions: Second troponin came back negative for myocardial injury. Patient did have only minimal improvement with the 30 mg of Toradol IV. Patient understands she needs to continue to hydrate she can continue to take benzopyrene for muscle relaxant and ibuprofen for anti-inflammatory. I believe the patient has chest wall pain especially in the posterior areas she needs to slowly stretch and hot baths can be used intermittent with ice packs for back pain. Pain is in the rhomboids and in the thoracic spine there is no other evidence of any other significant pathology in the area. She states that she has primary care provider but cannot recall the doctor's name she can also use the urgent care clinics and the [facility]. This has been treated with oxycodone 11/17/24 one every 6 hours for a MME of 30. She should continue with her primary provider who is giving her medications for inflammatory changes and opioid pain medication. Opioid safety initiative intervention needs to be managed by one provider. All discharge instructions reviewed with patient and/or family. Voiced understanding. Scripts Cyclobenzaprine HCl (Cyclobenzaprine HCl) 10 Mg Tablet 10 MG PO TID for Muscle Spasms, #30 TAB Prov: SUNG CALLEJAS DO 08/04/19 SUNG CALLEJAS DO Aug 04, 2019 19:06
[2019-08-04 19:11] LABS: HCG,QUALITATIVE URINE NEGATIVE (NEGATIVE)
[2019-08-04 19:12] LABS: ALBUMIN 4.3 GM/DL (3.2-4.5); BILIRUBIN,TOTAL 0.2 MG/DL (0.1-1.0); CALCIUM 9.5 MG/DL (8.5-10.1); CREATININE SERUM 1.13 MG/DL (0.60-1.30); MAGNESIUM 1.9 MG/DL (1.6-2.4); POTASSIUM 3.9 MMOL/L (3.6-5.0); TOTAL PROTEIN 6.9 GM/DL (6.4-8.2)
[2019-08-04 19:12] LABS: AMPHETAMINE SCREEN, URINE NEGATIVE (NEGATIVE); BARBITURATE SCREEN URINE NEGATIVE (NEGATIVE); BENZODIAZEPINES SCREEN URINE NEGATIVE (NEGATIVE); BILIRUBIN,URINE NEGATIVE (NEGATIVE); CANNABINOID SCREEN, URINE POSITIVE (NEGATIVE); CLARITY,URINE CLEAR; COCAINE SCREEN URINE NEGATIVE (NEGATIVE); COLOR,URINE YELLOW; GLUCOSE, URINE (UA) NEGATIVE (NEGATIVE); KETONES,URINE NEGATIVE (NEGATIVE); LEUKOCYTE ESTERASE ,URINE NEGATIVE (NEGATIVE); METHADONE STAT NEGATIVE (NEGATIVE); METHAMPHETAMINE SCREEN URINE S NEGATIVE (NEGATIVE); NITRITE,URINE NEGATIVE (NEGATIVE); OPIATE SCREEN URINE NEGATIVE (NEGATIVE); OXYCODONE STAT NEGATIVE (NEGATIVE); PROPOXYPHENE STAT NEGATIVE (NEGATIVE); PROTEIN,URINE NEGATIVE (NEGATIVE); TRICYCLIC ANTIDEPRESSANTS SCRE NEGATIVE (NEGATIVE)
[2019-08-04 19:13] LABS: BACTERIA,URINE NEGATIVE /HPF
[2019-08-04] MEDS ORDERED: NS IV 1000 ML 1,000 ML ONE (19:25)
[2019-08-04] MEDS ORDERED: NS IV 1000 ML 1,000 ML IV SCH (19:30)
[2019-08-04] MEDS ORDERED: KETOROLAC 30 MG/ML VIAL IVP ONE (20:00)
[2019-08-04] MEDS ORDERED: CYCL10TA9 PO (21:06)
[2019-08-04 21:13] VITALS: BP 124/98
== END 2019-08-04 21:19 | disposition home or self-care (01) ==
LOC: EDUNIT# 18:04 → ER FS 18:05
DX: R07.89 Other chest pain (principal); F41.9 Anxiety disorder, unspecified; F32.9 Major depressive disorder, single episode, unspecified; F17.210 Nicotine dependence, cigarettes, uncomplicated; Z79.52 Long term (current) use of systemic steroids; Z90.710 Acquired absence of both cervix and uterus
CPT/HCPCS: 36415; 71045; 80053; 80306; 81000; 83735; 84484; 84703; 85025; 85610; 85730; 93005; 93041; 96361; 96374

== ENCOUNTER → 2019-08-08 | Outpatient (CLI) | payer BC ==
[~2019-08-08] MED LIST changes: +CATHETER FLUSH 10 ML SYR IV PRN; +CYCL10TA9 PO; +HOLD METFORMIN - RECEIVED CONTRAST 20 ML VIAL IV SCH; +IOHEXOL 350 MG/ML 100 ML (OMNIPAQUE 350) VIAL IV ONE; +NS 100 ML (IVPB) BAG IV ONE
--- NOTE | 2019-08-08 13:59 | Diagnostic Imaging Report ---
EXAMINATION: CT Chest with intravenous contrast. TECHNIQUE: Multiple contiguous axial images were obtained through the chest after the uneventful administration of intravenous contrast. All CT scans use one or more of the following dose optimizing techniques: automated exposure control, MA and/or KvP adjustment based on a patient size and exam type, or iterative reconstruction. HISTORY: CHEST PAIN,SOB COMPARISON: None available. FINDINGS: There is no edema or pneumonia. No pleural effusion. No pneumothorax. No suspicious nodules. Heart size is normal. No pericardial effusion. Aorta is normal in caliber. There is no axillary or supraclavicular lymphadenopathy. There is no mediastinal lymphadenopathy. 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 There are no suspicious osseous lesions. IMPRESSION: 1. No acute abnormality in the chest. Dictated by: Dictated on workstation # [id number]
== END ==
LOC: RAD FS 12:45
PROVIDERS: ATTEND Family Medicine
DX: R07.89 Other chest pain (principal); R06.02 Shortness of breath
CPT/HCPCS: 71260

== ENCOUNTER 2020-02-28 13:13 | Emergency (ER) | payer BC, OTHER ==
[~2020-02-28] VITALS: Ht 157 cm; Wt 45.0 kg
[~2020-02-28 13:13] MED LIST changes: -CATHETER FLUSH 10 ML SYR IV PRN; -HOLD METFORMIN - RECEIVED CONTRAST 20 ML VIAL IV SCH; -IOHEXOL 350 MG/ML 100 ML (OMNIPAQUE 350) VIAL IV ONE; -NS 100 ML (IVPB) BAG IV ONE
[2020-02-28] MEDS ORDERED: LIDOCAINE 1% INJ 20 ML 20 ML VIAL ONE (13:36)
[2020-02-28] MEDS ORDERED: LIDOCAINE 1% INJ 20 ML 20 ML VIAL INJ ONE (14:30)
--- NOTE | 2020-02-28 15:04 | Diagnostic Imaging Report ---
INDICATION: Fall with laceration to the left knee. TIME OF EXAM: 2:36 PM FINDINGS: Three views of the left knee were obtained. There is soft tissue gas best seen on the lateral view in the region of the distal patellar tendon. Bony structures are intact. Joint spaces are maintained. Articular surfaces are smooth. No fracture, dislocation or effusion is seen. IMPRESSION: Soft tissue gas in the infrapatellar region best seen on the lateral view. No acute bony abnormality or evidence of radiopaque foreign body is detected. Dictated by: Dictated on workstation # [id number]
--- NOTE | 2020-02-28 15:05 | Diagnostic Imaging Report ---
INDICATION: Fall with bruising to the left thigh. TIME OF EXAM: 2:44 PM FINDINGS: Alignment at the hip and knee appears normal. The femur appears intact. No fractures are seen. Soft tissues are unremarkable. IMPRESSION: No acute abnormality is detected. Dictated by: Dictated on workstation # [id number]
--- NOTE | 2020-02-28 15:06 | Diagnostic Imaging Report ---
INDICATION: Fall with left wrist pain. TIME OF EXAM: 02:48 p.m. TECHNIQUE: Three views of the left wrist were obtained. FINDINGS: Distal radius and ulna are intact. Carpus is intact. Metacarpals are unremarkable. No fractures are seen. IMPRESSION: No acute bony abnormality is detected. Dictated by: Dictated on workstation # [id number]
[2020-02-28 16:57] VITALS: BP 122/76
[2020-02-28] MEDS ORDERED: CEPHALEXIN 250 MG (KEFLEX) CAP PO STA (17:00)
--- NOTE | 2020-02-28 17:04 | ED Lower Extremity ---
General Chief Complaint: Laceration Stated Complaint: LT LEG LAC Nursing Triage Note: PT WAS FISHING AND FELL IN AN OPEN AREA ON A DOCK AND CUT HER LEFT KNEE IN ABOUT A 2.5 CM HORSESHOE SHAPE. WELL APPROXIMATED AND BLEEDING CONTROLLED. PT ALSO HAS A LARGE BRUISED AREA ON THE LEFT LATERAL THIGH AND SOME BRUISING TO HER LEFT WRIST WITH SOME PAIN. Nursing Sepsis Screen: No Definite Risk Source: patient History of Present Illness Date Seen by Provider: Feb 28, 2020 Time Seen by Provider: 16:01 Initial Comments 39-year-old female presenting with laceration to her left larson. She had been fishing and fell through an open area on the dog. In the process she had sustained the laceration as well as has a large bruised area to her left lateral thigh and bruising and pain to her left wrist. She did not hit her head or loose consciousness. She denies any abdominal pain or nausea and vomiting. She is able to walk but has pain with movement. Allergies and Home Medications Allergies Coded Allergies: No Known Drug Allergies (Unverified , 12/19/18) Home Medications Alprazolam 0.5 Mg Tablet, 0.5 MG PO Q6H PRN for ANXIETY, (Reported) Cephalexin 500 Mg Capsule, 500 MG PO QID Prescribed by: ZURI JUNG on 02/28/20 171 Cyclobenzaprine HCl 10 Mg Tablet, 10 MG PO TID Prescribed by: SUNG CALLEJAS on 08/04/192105 Docusate Sodium 100 Mg Capsule, 100 MG PO BID Prescribed by: BEKAH CHO on 04/14/18 1330 Ibuprofen 800 Mg Tablet, 800 MG PO Q6H PRN for PAIN Prescribed by: BEKAH CHO on 04/14/18 1330 Oxycodone HCl/Acetaminophen 1 Each Tablet, 1 EACH PO Q4H PRN for PAIN-MODERATE Prescribed by: BEKAH CHO on 04/14/18 1330 Prednisone 20 Mg Tab, 20 MG PO BID Prescribed by: JERMAN MCGUIRE on 12/19/182105 Patient Home Medication List Home Medication List Reviewed: Yes Review of Systems Constitutional: No chills, No fever EENTM: no symptoms reported Respiratory: no symptoms reported Cardiovascular: no symptoms reported Gastrointestinal: no symptoms reported Genitourinary: no symptoms reported Musculoskeletal: see HPI Skin: see HPI Psychiatric/Neurological: Anxiety; Denies Numbness, Denies Paresthesia, Denies Weakness Past Pxcbksa-Nxftyi-Zokath Hx Past Med/Social Hx: Reviewed Nursing Past Med/Soc Hx Patient Social History Alcohol Use: Denies Use Number of Drinks Today: AA Alcohol Beverage of Choice: Beer Recreational Drug Use: No Drug of Choice: MJ Smoking Status: Current Everyday Smoker Type Used: Cigarettes 2nd Hand Smoke Exposure: No Recent Foreign Travel: No Contact w/Someone Who Travel: No Recent Infectious Disease Expo: No Recent Hopitalizations: No Physical Abuse: No Sexual Abuse: No Mistreated: No Fear: No Seasonal Allergies Seasonal Allergies: No Past Medical History Surgeries: Yes Gallbladder, Hysterectomy, Oophorectomy Respiratory: No Cardiac: No Neurological: No Reproductive Disorders: No Genitourinary: No Gastrointestinal: No Musculoskeletal: No Endocrine: No HEENT: No Cancer: No Psychosocial: Yes Anxiety, Depression Integumentary: No Blood Disorders: No Adverse Reaction/Blood Tranf: No Family Medical History Patient reports no known family medical history. No Pertinent Family Hx Physical Exam Vital Signs Vital Signs - First Documented 02/28/20 13:30 Temp 36.7 Pulse 84 Resp 18 B/P (MAP) 123/86 (98) Pulse Ox 99 O2 Delivery Room Air Capillary Refill : Less Than 3 Seconds Height, Weight, BMI Height: 5'3.00" Weight: 95lbs. 0.0oz. [age]yo; 18.00 BMI Method:Stated General Appearance: WD/WN, mild distress HEENT: PERRL/EOMI, pharynx normal Neck: non-tender, full range of motion, supple, normal inspection Cardiovascular: normal peripheral pulses, regular rate, rhythm Respiratory: chest non-tender, lungs clear, normal breath sounds, no respiratory distress, no accessory muscle use Gastrointestinal: normal bowel sounds, non tender, soft Hips: left hip ecchymosis, left hip soft tissue tenderness Legs: left leg ecchymosis, left leg pain (2.6 cm laceration to left anterior proximal larson), left leg soft tissue tenderness Neurologic/Tendon: normal sensation, normal motor functions, normal tendon functions Neurologic/Psychiatric: collision repairer II-XII nml as tested, no motor/sensory deficits, alert, normal mood/affect, oriented x 3 Skin: warm/dry, ecchymosis (left wrist, left lateral thigh, left larson) Procedures/Interventions Wound Location: Lower Extremities (left larson) Wound Length (cm): 2.6 Wound's Depth, Shape: flap Wound Explored: contaminated Irrigated w/ Saline (ccs): 150 Anesthesia: 1% Lidocaine Volume Anesthetic (ccs): 8 Suture: Ethlion Suture Size: 4-0 Number of Sutures: 5 Layer Closure?: 1 Sterile Dressing Applied?: Yes Progress After obtaining verbal informed consent from the patient 1% plain lidocaine was infiltrated into the laceration. Then the wound was cleaned with chlorhexidine scrub brush and irrigated with sterile saline. There were no foreign bodies seen. The wound edges were then approximated with 4-0 Ethilon using a total of 4 simple interrupted stitches and 1 horizontal mattress. Patient tolerated the procedure well without any immediate complication. Counseled on follow-up and return precautions. Advised to have the stitches out in 10-14 days. Started on Keflex for prophylaxis since the wound was exposed to [place] water. Progress/Results/Core Measures Results/Orders My Orders Orders - ZURI JUNG MD Lidocaine 1% Inj 20 Ml (Xylocaine 1% Inj (02/28/20 13:36) Knee 3 View Left (02/28/20 14:26) Lidocaine 1% Inj 20 Ml (Xylocaine 1% Inj (02/28/20 14:30) Suture Set At Bedside (02/28/20 14:26) Femur 2 View Left (02/28/20 14:41) Wrist 3 View Left (02/28/20 14:41) Cephalexin Capsule (Keflex Capsule) (02/28/20 17:00) Wound Dressing-Ed (02/28/20 17:02) Dipht,Pertuss(Acell),Tet Adult (Boostrix (02/28/20 17:15) Medications Given in ED Current Medications Medications Dose Ordered Sig/Clarke Route Start Time Stop Time Status Last Admin Dose Admin Diphtheria/ Tetanus/Acell Pertussis 0.5 ml ONCE ONCE IM 02/28/20 17:15 02/28/20 17:16 DC 02/28/20 17:09 0.5 ML Lidocaine HCl 20 ml ONCE ONCE INJ 02/28/20 14:30 02/28/20 14:31 DC 02/28/20 14:38 20 ML Vital Signs/I&O 02/28/20 02/28/20 13:30 16:57 Temp 36.7 36.5 Pulse 84 78 Resp 18 16 B/P (MAP) 123/86 (98) 122/76 Pulse Ox 99 99 O2 Delivery Room Air Room Air Blood Pressure Mean: 98 Progress Progress Note : Progress Note Obtain x-rays of the areas that were injured. These did not show any obvious fractures. Then the laceration was repaired with 4-0 Ethilon suture. Her tetanus was updated and she was started on antibiotics for prophylaxis since the wound was exposed to [place] water. Counseled on follow-up and return precautions. Diagnostic Imaging Diagonstic Imaging: Xray Plain Films/CT/US/NM/MRI: femur Comments [facility], [place] NAME: TEJAS TRAMMELL [facility] REC#: [id number] PT STATUS: REG ER : 1980 PHYSICIAN: ZURI JUNG MD ADMIT DATE: 02/28/20/ER FS Signed Date of Exam:02/28/20 FEMUR 2 VIEW LEFT INDICATION: Fall with bruising to the left thigh. TIME OF EXAM: 2:44 PM FINDINGS: Alignment at the hip and knee appears normal. The femur appears intact. No fractures are seen. Soft tissues are unremarkable. IMPRESSION: No acute abnormality is detected. Dictated by: Dictated on workstation # [id number] Dict: 02/28/20 1502 Trans: 02/28/20 1550 [facility] [id number] Interpreted by: RAH SAWANT MD Electronically signed by: RAH SAWANT MD 02/28/20 1550 Diagonstic Imaging: Xray Plain Films/CT/US/NM/MRI: knee [facility] [place], [place] NAME: TEJAS TRAMMELL [facility] REC#: [id number] PT STATUS: REG ER : 1980 PHYSICIAN: ZURI JUNG MD ADMIT DATE: 02/28/20/ER FS Signed Date of Exam:02/28/20 KNEE 3 VIEW LEFT INDICATION: Fall with laceration to the left knee. TIME OF EXAM: 2:36 PM FINDINGS: Three views of the left knee were obtained. There is soft tissue gas best seen on the lateral view in the region of the distal patellar tendon. Bony structures are intact. Joint spaces are maintained. Articular surfaces are smooth. No fracture, dislocation or effusion is seen. IMPRESSION: Soft tissue gas in the infrapatellar region best seen on the lateral view. No acute bony abnormality or evidence of radiopaque foreign body is detected. Dictated by: Dictated on workstation # [id number] Dict: 02/28/20 1501 Trans: 02/28/20 1550 [facility] [id number] Interpreted by: RAH SAWANT MD Electronically signed by: RAH SAWANT MD 02/28/20 1550 Diagonstic Imaging: Xray Plain Films/CT/US/NM/MRI: other (wrist) Comments [facility] [place] [place] NAME: TEJAS TRAMMELL [facility] REC#: [id number] PT STATUS: REG ER : 1980 PHYSICIAN: ZURI JUNG MD ADMIT DATE: 02/28/20/ER FS Signed Date of Exam:02/28/20 WRIST 3 VIEW LEFT INDICATION: Fall with left wrist pain. TIME OF EXAM: 02:48 p.m. TECHNIQUE: Three views of the left wrist were obtained. FINDINGS: Distal radius and ulna are intact. Carpus is intact. Metacarpals are unremarkable. No fractures are seen. IMPRESSION: No acute bony abnormality is detected. Dictated by: Dictated on workstation # [id number] Dict: 02/28/20 1503 Trans: 02/28/20 1551 [facility] [id number] Interpreted by: RAH SAWANT MD Electronically signed by: RAH SAWANT MD 02/28/20 1551 Departure Impression Primary Impression: Laceration of left lower leg without foreign body Qualified Codes: S81.812A - Laceration without foreign body, left lower leg, initial encounter Additional Impression: Traumatic hematoma of left thigh Qualified Codes: S70.12XA - Contusion of left thigh, initial encounter Disposition: 01 HOME, SELF-CARE Condition: Stable Departure-Patient Inst. Decision time for Depature: 17:08 Referrals: CHATA PIZANO DO (PCP/Family) Primary Care Physician Patient Instructions: Laceration Repair With Stitches (DC), Diphtheria and Tetanus Toxoids, and Acellular Pertussis Vaccine, Contusion (DC) Add. Discharge Instructions: Apply ice and elevate your leg to help with bruising/hematoma. Keep the laceration/stitches clean and dry for the first 24 hours then you may remove the wound dressing and wash it normally but do not soak it. Apply an tibiotic ointment and a dressing it you may get the wound dirty. Follow up with clinic or return here for removal of stitches in 10 to 14 days. Take the full course of antibiotics to try and prevent infection. All discharge instructions reviewed with patient and/or family. Voiced understanding. Scripts Cephalexin (Keflex) 500 Mg Capsule 500 MG PO QID for 7 Days, #28 CAP 0 Refills Prov: ZURI JUNG MD 02/28/20 Work/School Note: Work Release Form Date Seen in the Emergency Department: Feb 28, 2020 Return to Work: Mar 03, 2020 Other Restrictions Listed Below: Limit lifting and activity with left leg. Keep stitches/wound clean and dry Images Extremities-Lower 1 - Ecchymosis (large hematoma to left lateral leg), Tenderness (mild to moderate tenderness to palpation) 2 - Ecchymosis (mild bruising to larson with laceration present), Laceration (2.6 cm flap laceration to proximal larson) ZURI JUNG MD Feb 28, 2020 17:04
[2020-02-28] MEDS ORDERED: CEPH-507 PO (17:12)
[2020-02-28] MEDS ORDERED: TETANUS,DIPTH,PERTUSS P/F (BOOSTRIX) 0.5 ML VIAL IM ONE (17:15)
== END 2020-02-28 17:17 | disposition home or self-care (01) ==
LOC: EDUNIT# 13:13 → ER FS 13:16
DX: S81.812A Laceration without foreign body, left lower leg, initial encounter (principal); S70.12XA Contusion of left thigh, initial encounter; F17.210 Nicotine dependence, cigarettes, uncomplicated; F41.9 Anxiety disorder, unspecified; F32.9 Major depressive disorder, single episode, unspecified; Z23 Encounter for immunization; Z79.52 Long term (current) use of systemic steroids; W18.39XA Other fall on same level, initial encounter; Y92.62 Dock or shipyard as the place of occurrence of the external cause
CPT/HCPCS: 12001; 73110; 73552; 73562; 90715

== ENCOUNTER → 2020-03-25 | Outpatient (CLI) | payer OTHER ==
[~2020-03-25] MED LIST changes: +CEPH-507 PO
--- NOTE | 2020-03-25 14:36 | Diagnostic Imaging Report ---
INDICATION: Pain and swelling in the left lower extremity. FINDINGS: Sonographic interrogation of the left lateral thigh was performed. There is an area of heterogeneity with mixed fluid and solid echogenicity measuring 6.6 x 2.6 x 6.8 cm. This may represent an area of hematoma. No abnormal vascularity is present. The second area of interest corresponds to the left leg inferior to the knee, lateral side. This too shows an area of heterogeneity with mixed soft tissue and fluid echogenicity measuring 4.6 x 1.6 x 5.4 cm. No abnormal vascularity is seen. IMPRESSION: Probable hematomas at the areas of interest in the lateral left thigh and lateral left lower extremity. A follow-up could be performed to confirm clearing. Dictated by: Dictated on workstation # [id number]
--- NOTE | 2020-03-25 18:52 | Diagnostic Imaging Report ---
PROCEDURE: MRI left joint lower extremity without contrast, 03/25/2020. TECHNIQUE: Multiplanar, multisequence non contrast-enhanced MRI of the left lower extremity was accomplished. INDICATION: Mass, swelling and possible hematoma. Abnormality below the knee COMPARISON: Correlation made to sonogram dated 03/25/2020 FINDINGS: The extensor mechanism is intact. ACL and PCL are intact. The lateral collateral ligamentous complex and the MCL intact. Myxoid degeneration is noted within the posterior horn of the medial meniscus which is otherwise unremarkable. The lateral meniscus is intact. Cartilage throughout the knee appears preserved. There is a soft tissue abnormality along the lateral aspect of the extremity from the level of the fibular head extending distally. The visualized aspects measure 2.6 x 1.1 x 6.1 cm. This has signal characteristics predominantly consistent with fluid and this could represent a subcutaneous hematoma. No surrounding aggressive findings to suggest mass. No peripheral rim to suggest a walled off abscess. Mild adjacent subcutaneous edema is noted. Lack of contrast limits evaluation for any internal enhancement that would be suggestive of a cystic mass. The osseous structures appear unremarkable. IMPRESSION: 1. Nonspecific fluid like collection in the anterior subcutaneous soft tissues of the extremity, most likely hematoma; however, correlation for any recent injury to the region recommended. Close clinical follow-up and follow-up imaging recommended to assure complete resolution and exclude a partially cystic mass. 2. Clinical exclusion of an infectious etiology based on symptoms also recommended. 3. Other findings, as above. Dictated by: Dictated on workstation # [id number]
== END ==
LOC: RAD 13:45
PROVIDERS: ATTEND Family Medicine
DX: Z00.00 Encounter for general adult medical examination without abnormal findings (principal); S80.12XD Contusion of left lower leg, subsequent encounter; M25.562 Pain in left knee; R22.42 Localized swelling, mass and lump, left lower limb; M79.89 Other specified soft tissue disorders; J06.9 Acute upper respiratory infection, unspecified; S80.02XA Contusion of left knee, initial encounter; S70.12XA Contusion of left thigh, initial encounter
CPT/HCPCS: 73721; 76881

== ENCOUNTER → 2021-08-06 | Outpatient (CLI) | payer OTHER ==
[~2021-08-06] MED LIST changes: +CLIN-144 PO; -CLIN300C11 PO; +CYCL10TA25 PO; -CYCL10TA9 PO; -SULF1TAB35 PO; +SULF1TAB38 PO
== END ==
LOC: RAD FS 13:30
PROVIDERS: ATTEND Orthopaedic Surgery
DX: G56.03 Carpal tunnel syndrome, bilateral upper limbs (principal); F41.9 Anxiety disorder, unspecified

== ENCOUNTER → 2021-08-18 | Outpatient (CLI) | payer OTHER ==
--- NOTE | 2021-08-18 15:46 | Diagnostic Imaging Report ---
INDICATION: Bilateral wrist pain. TIME OF EXAM: 1:49 PM. FINDINGS: Multiple views of the bilateral wrists were obtained. Both wrists demonstrate normal alignment. The distal radius and ulna are intact bilaterally. The carpi are intact. The metacarpals are unremarkable. No fractures are seen. IMPRESSION: Unremarkable bilateral wrists. Dictated by: Dictated on workstation # [id number]
== END ==
LOC: RAD FS 13:40
PROVIDERS: ATTEND Orthopaedic Surgery
DX: M25.531 Pain in right wrist (principal); M25.532 Pain in left wrist

== ENCOUNTER → 2021-09-10 | Outpatient (CLI) | payer OTHER | LOC: ORTHO 14:48 | PROVIDERS: ATTEND Orthopaedic Surgery | DX: G56.03 Carpal tunnel syndrome, bilateral upper limbs (principal) ==

== ENCOUNTER → 2022-03-08 | Outpatient (CLI) | payer OTHER ==
--- NOTE | 2022-03-08 13:55 | Diagnostic Imaging Report ---
INDICATION: Neck pain. EXAMINATION: Cervical spine, 5 views. FINDINGS: Good alignment of the vertebral bodies. Body heights are well-maintained. Disc spaces are well-maintained. There are mild hypertrophic endplate changes noted anteriorly at C5-C6. Facets show good alignment. Oblique views show no evidence of foraminal encroachment. The odontoid appears normal with good alignment of the atlantoaxial joint. IMPRESSION: Mild degenerative changes at the C5-C6 disc space. Dictated by: Dictated on workstation # [id number]
== END ==
LOC: RAD FS 09:15
PROVIDERS: ATTEND Orthopaedic Surgery
DX: M50.122 Cervical disc disorder at C5-C6 level with radiculopathy (principal)
CPT/HCPCS: 72050

== ENCOUNTER → 2022-03-18 | Outpatient (CLI) | payer OTHER ==
--- NOTE | 2022-03-18 12:58 | Diagnostic Imaging Report ---
CLINICAL INDICATIONS: Patient has bilateral hand numbness and pain from her elbows to hands. EXAM: MRI of the cervical spine performed without IV contrast. Sequences include sagittal T2, sagittal T1, sagittal T2 fat-sat, and axial T2. COMPARISON: X-ray of the cervical spine dated 03/08/2022. FINDINGS: There is no acute cervical spine fracture or dislocation. There is no abnormal Modic degenerative signal changes. There is slight left curvature of the upper thoracic spine region again noted. The vertebral body heights and intervertebral disk heights are maintained. There is no prevertebral soft tissue swelling. Limited visualization of the posterior fossa is unremarkable. Cervical spinal cord is normal cord caliber with no abnormal signal. There are small anterior spurs at C4-C5, C5-C6, and C6-C7 levels. C2-C3: There is no significant central canal stenosis. C2-C3: Unremarkable. C3-C4: Unremarkable. C4-C5: Unremarkable. C5-C6: There is a subtle right subarticular disk spur. There is no significant central spinal canal or neural foramen narrowing. C6-C7: There is subtle disk bulging. There is no significant central spinal canal or neural foramen narrowing. C7-T1: Unremarkable. IMPRESSION: 1: There is no acute cervical spine fracture or dislocation. 2: There is mild cervical spine degenerative disease. There is no significant central canal or neural foramen narrowing. Dictated by: Dictated on workstation # [id number]
== END ==
LOC: RAD 08:39
PROVIDERS: ATTEND Orthopaedic Surgery
DX: M47.22 Other spondylosis with radiculopathy, cervical region (principal)
CPT/HCPCS: 72141